=== PATIENT | male | born 1960 | race Caucasian/White ===

== ENCOUNTER 2019-05-13 16:43 | Emergency (ER) | payer SELFPAY ==
--- NOTE | 2019-05-13 19:44 | Emergency Department Report ---
Blank Doc - Documentation Documentation: 58-year-old male that presents with right 5th finger pain, discoloration, and pulsating pain. This initial assessment/diagnostic orders/clinical plan/treatment(s) is/are subject to change based on patient's health status, clinical progression and re- assessment by fellow clinical providers in the ED. Further treatment and workup at subsequent clinical providers discretion. Patient/guardians urged not to elope from the ED as their condition may be serious if not clinically assessed and managed. Initial orders include: 1- Patient sent to MAIN ED for further evaluation and treatment 2- xrays 3- labs
[2019-05-13 19:57] LABS: Basophils # (Auto) 0.1 K/mm3 (0.0-0.1); Basophils % (Auto) 1.1 % (0.0-1.8); Eosinophils # (Auto) 0.3 K/mm3 (0.0-0.4); Eosinophils % (Auto) 4.6 % (0.0-4.3); Hematocrit 39.6 % (35.5-45.6); Hemoglobin 13.5 gm/dl (11.8-15.2); Lymphocytes # (Auto) 1.6 K/mm3 (1.2-5.4); Lymphocytes % (Auto) 28.9 % (13.4-35.0); Mean Corpuscular HGB Conc 34 % (32-34); Mean Corpuscular Volume 86 fl (84-94); Monocytes # (Auto) 0.6 K/mm3 (0.0-0.8); Monocytes % (Auto) 10.2 % (0.0-7.3); Platelet Count 176 K/mm3 (140-440); Red Blood Count 4.63 M/mm3 (3.65-5.03)
--- NOTE | 2019-05-13 20:11 | XRay Report ---
RIGHT HAND 3 VIEWS INDICATION / CLINICAL INFORMATION: MAIN: pain and swelling to hand; woke to hand swollen; Pt. c/o pain to fingertips and ears. Noted di scoloration to first finger and ring finger. COMPARISON: None available. FINDINGS: BONES / JOINT(S): No acute fracture or subluxation. No significant arthritis. SOFT TISSUES: Vascular calcification. ADDITIONAL FINDINGS: None. Signer Name: Adi Agosto MD Signed: 05/13/2019 8:07 PM Workstation Name: [id number]
[2019-05-13 20:31] LABS: BUN/Creatinine Ratio 29; Blood Urea Nitrogen 20 mg/dL (9-20); Calcium 9.3 mg/dL (8.4-10.2); Hemolysis Index 14
[2019-05-13] MEDS ORDERED: predniSONE 20 MG TAB PO ONE (22:33)
[2019-05-13] MEDS ORDERED: IBUPROFEN 600 MG TAB PO ONE (22:33)
--- NOTE | 2019-05-13 22:38 | Emergency Department Report ---
ED General Adult HPI - General Chief complaint: Extremity Problem,Nontraumatic Stated complaint: RIGHT HAND PAIN Time Seen by Provider: 05/13/19 19:33 Source: patient Mode of arrival: Ambulatory Limitations: No Limitations - History of Present Illness Initial comments: Patient is a 58-year-old male with a history of hypertension, coronary artery disease, [id number] diabetes and chronic osteoarthritis who presents to the ED with complaint of acute onset persistent severe nontraumatic right hand and right fourth and fifth finger pain and swelling for the last 2 weeks. Patient states that the pain is especially worse in the distal right fourth and fifth fingers. Patient states that the pain radiates proximally to the lateral right hand to the right wrist. Patient denies fall, traumatic injury, numbness or tingling or weakness of right hand or right fourth and fifth fingers, fever, chills, heavy lifting, nausea and vomiting or neck pain. MD Complaint: right 4th and 5th finger pains, swelling -: Sudden, week(s) (2) Location: right, upper extremity (right 4th and 5th fingers) Radiation: extremity (lateral right hand), proximal, distal Severity scale (0 -10): 7 Quality: aching, sharp, constant Consistency: constant Improves with: none Worsens with: movement Associated Symptoms: denies other symptoms. denies: confusion, chest pain, cough, diaphoresis, fever/chills, headaches, loss of appetite, malaise, nausea/vomiting, rash, seizure, shortness of breath, syncope, weakness, other Treatments Prior to Arrival: none - Related Data Previous Rx's Medication Instructions Recorded Last Taken Type Aspirin EC [Halfprin EC] 81 mg PO QDAY #30 tablet 02/14/18 Unknown Rx AtorvaSTATin [Lipitor] 40 mg PO QHS #30 tablet 02/14/18 Unknown Rx ISOSORBIDE MONOnitrate [Imdur ER] 30 mg PO QDAY #30 tablet 02/14/18 Unknown Rx Insulin NPH/Regular [NovoLIN 70/30] 10 unit SUB-Q BIDDIAB 30 Days 02/14/18 Unknown Rx units Metoprolol [Lopressor TAB] 25 mg PO Q12H #60 tablet 02/14/18 Unknown Rx Nitroglycerin [Nitrostat] 0.4 mg SL Q5M PRN #30 tablet 02/14/18 Unknown Rx Ticagrelor [Brilinta] 90 mg PO BID #60 tablet 02/14/18 Unknown Rx lisinopriL [Zestril TAB] 5 mg PO QDAY #30 tablet 02/14/18 Unknown Rx Naproxen 500 mg PO Q12H PRN #30 tablet 05/13/19 Unknown Rx predniSONE [Deltasone] 40 mg PO QDAY #12 tab 05/13/19 Unknown Rx traMADoL [Ultram] 50 mg PO Q6HR PRN #12 tablet 05/13/19 Unknown Rx Allergies Allergy/AdvReac Type Severity Reaction Status Date / Time No Known Allergies Allergy Verified 07/26/17 12:59 ED Review of Systems ROS: Stated complaint: RIGHT HAND PAIN Other details as noted in HPI Constitutional: denies: chills, fever Eyes: denies: eye pain, eye discharge, vision change ENT: denies: ear pain, throat pain Respiratory: denies: cough, shortness of breath, wheezing Cardiovascular: denies: chest pain, palpitations Endocrine: no symptoms reported Gastrointestinal: denies: abdominal pain, nausea, diarrhea Genitourinary: denies: urgency, dysuria Musculoskeletal: joint swelling (distal right 4th and 5th fingers), arthralgia (right hand; right 4th and 5th fingers). 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 (nursing entry, unlikely to be accurate)) Hx Diabetes: Yes Additional medical history: CAD - Surgical History Past Surgical History?: Yes Hx Coronary Stent: Yes Additional Surgical History: CABG 2017 - Social History Smoking Status: Never Smoker Substance Use Type: Alcohol - Medications Home Medications: Home Medications Medication Instructions Recorded Confirmed Last Taken Type Aspirin EC [Halfprin EC] 81 mg PO QDAY #30 tablet 02/14/18 Unknown Rx AtorvaSTATin [Lipitor] 40 mg PO QHS #30 tablet 02/14/18 Unknown Rx ISOSORBIDE MONOnitrate [Imdur ER] 30 mg PO QDAY #30 tablet 02/14/18 Unknown Rx Insulin NPH/Regular [NovoLIN 70/30] 10 unit SUB-Q BIDDIAB 30 Days 02/14/18 Unknown Rx units Metoprolol [Lopressor TAB] 25 mg PO Q12H #60 tablet 02/14/18 Unknown Rx Nitroglycerin [Nitrostat] 0.4 mg SL Q5M PRN #30 tablet 02/14/18 Unknown Rx Ticagrelor [Brilinta] 90 mg PO BID #60 tablet 02/14/18 Unknown Rx lisinopriL [Zestril TAB] 5 mg PO QDAY #30 tablet 02/14/18 Unknown Rx Naproxen 500 mg PO Q12H PRN #30 tablet 05/13/19 Unknown Rx predniSONE [Deltasone] 40 mg PO QDAY #12 tab 05/13/19 Unknown Rx traMADoL [Ultram] 50 mg PO Q6HR PRN #12 tablet 05/13/19 Unknown Rx ED Physical Exam - General Limitations: No Limitations General appearance: alert, in no apparent distress - Head Head exam: Present: atraumatic, normocephalic, normal inspection - Eye Eye exam: Present: normal appearance, PERRL, EOMI Pupils: Present: normal accommodation - ENT ENT exam: Present: normal exam, normal orophraynx, mucous membranes moist, TM's normal bilaterally, normal external ear exam - Neck Neck exam: Present: normal inspection, full ROM - Respiratory Respiratory exam: Present: normal lung sounds bilaterally. Absent: respiratory distress, wheezes, rales, rhonchi, chest wall tenderness, accessory muscle use, decreased breath sounds, prolonged expiratory - Cardiovascular Cardiovascular Exam: Present: regular rate, normal rhythm, normal heart sounds. Absent: systolic murmur, diastolic murmur, rubs, gallop - GI/Abdominal GI/Abdominal exam: Present: soft, normal bowel sounds. Absent: tenderness, guarding, rebound, hyperactive bowel sounds, hypoactive bowel sounds, organomegaly - Extremities Exam Extremities exam: Present: normal inspection, full ROM, tenderness (palpable distal right 4th and 5th finger tenderness with mild swelling; no discoloration or delayed capillary refills), normal capillary refill, joint swelling (distal right 4th and 5th fingers) - Back Exam Back exam: Present: normal inspection, full ROM. Absent: tenderness, CVA tenderness (R), muscle spasm, paraspinal tenderness, vertebral tenderness - Neurological Exam Neurological exam: Present: alert, oriented X3, CN II-XII intact, normal gait, reflexes normal - Psychiatric Psychiatric exam: Present: normal affect, normal mood - Skin Skin exam: Present: warm, dry, intact, normal color. Absent: rash ED Course Vital Signs 05/13/19 05/13/19 19:46 22:11 Temperature 98.5 F Pulse Rate 91 H Respiratory 18 17 Rate Blood Pressure 135/94 [Right] O2 Sat by Pulse 100 Oximetry ED Medical Decision Making - Lab Data Result diagrams: 05/13/19 19:48 05/13/19 19:48 - Medical Decision Making This is a 58-year-old male who presented to the ED with nontraumatic right hand and right fourth and fifth finger pain and mild swelling for 2 weeks. In the ED, patient is alert and oriented x3 and is not in any distress. Patient was treated for pain in the ED and discharged home on medications for pain. Patient symptoms are likely due to acute tendinitis, muscle strain or osteoarthritis. Patient was advised to follow-up with his primary care physician in 5 to 7 days for evaluation or return to the ED immediately if symptoms get worse. - Differential Diagnosis Tendonitis; muscle strain; osteoarthritis Critical care attestation.: If time is entered above; I have spent that time in minutes in the direct care of this critically ill patient, excluding procedure time. ED Disposition Clinical Impression: Tendonitis of right hand, Muscle strain of finger of right hand, Primary osteoarthritis of right hand Disposition: DC-01 TO HOME OR SELFCARE Is pt being admited?: No Does the pt Need Aspirin: No Condition: Stable Instructions: Muscle Strain (ED), Tendinitis (ED), Osteoarthritis (ED) Additional Instructions: Celena sntomas se deben a la inflamacin de los tendones y ligamentos de la mano y los dedos (tendinitis) y tambin a la enfermedad degenerativa de las articulaciones (osteoartritis). Por lo tanto, tome medicamentos con alimentos, dean muchos lquidos y carmen un seguimiento con swartz mdico de atencin primaria en 5 a 7 bourne para la reevaluacin. Regrese al servicio de urgencias de inmediato si los sntomas empeoran. Prescriptions: predniSONE [Deltasone] 40 mg PO QDAY #12 tab Naproxen 500 mg PO Q12H PRN #30 tablet PRN Reason: Pain , Severe (7-10) traMADoL [Ultram] 50 mg PO Q6HR PRN #12 tablet PRN Reason: Pain Referrals: VINAY GUEVARA MD [Staff Physician] - 7-10 days Time of Disposition: 22:48 Print Language: IRISH
[2019-05-13 23:14] VITALS: BP 137/85
== END 2019-05-13 23:14 | disposition home or self-care (01) ==
LOC: ED 16:43
DX: S56.115A Strain of flexor muscle, fascia and tendon of right ring finger at forearm level, initial encounter (principal); S56.113A Strain of flexor muscle, fascia and tendon of right middle finger at forearm level, initial encounter; M77.9 Enthesopathy, unspecified; M19.041 Primary osteoarthritis, right hand; I10 Essential (primary) hypertension; I25.2 Old myocardial infarction; E11.9 Type 2 diabetes mellitus without complications; Z95.5 Presence of coronary angioplasty implant and graft; Z98.890 Other specified postprocedural states; Z79.899 Other long term (current) drug therapy; X58.XXXA Exposure to other specified factors, initial encounter; Y93.89 Activity, other specified; Y92.89 Other specified places as the place of occurrence of the external cause; Y99.8 Other external cause status
CPT/HCPCS: 36415; 73130; 80048; 85025; 99283; J7512

== ENCOUNTER 2019-06-13 21:08 | Inpatient (IN) | payer OTHER ==
[2019-06-13 21:56] LABS: Basophils % (Auto) 0.4 % (0.0-1.8); Eosinophils % (Auto) 0.2 % (0.0-4.3); Hematocrit 29.7 % (35.5-45.6); Lymphocytes % (Auto) 20.7 % (13.4-35.0); Mean Corpuscular HGB Conc 34 % (32-34); Mean Corpuscular Volume 87 fl (84-94); Monocytes # (Auto) 0.7 K/mm3 (0.0-0.8); Monocytes % (Auto) 6.9 % (0.0-7.3); Platelet Count 206 K/mm3 (140-440); Red Blood Count 3.42 M/mm3 (3.65-5.03); Red Cell Distribution Width 13.1 % (13.2-15.2)
[2019-06-13 22:02] LABS: Alanine Aminotransferase 17 units/L (7-56); Albumin 4.3 g/dL (3.9-5); BUN/Creatinine Ratio 50; Blood Urea Nitrogen 55 mg/dL (9-20); Hemolysis Index 6
[2019-06-13 23:43] LABS: Bilirubin,Urine NEG (Negative); Blood,Urine NEG (Negative); Color,Urine Colorless (Yellow); Mucus,Urine FEW /HPF; Protein,Urine <15 mg/dL mg/dL (Negative); Urobilinogen,Urine < 2.0 mg/dL (<2.0); WBC,Urine < 1.0 /HPF (0.0-6.0)
[2019-06-13] MEDS ORDERED: SODIUM CHLORIDE 0.9% 1000 ML 1,000 ML IV ONE (23:49)
--- NOTE | 2019-06-13 23:59 | Emergency Department Report ---
ED GI Bleed HPI - General Chief complaint: Hyperglycemia Stated complaint: HBS Time Seen by Provider: 06/13/19 23:22 Source: patient Mode of arrival: Ambulatory Limitations: Language Barrier - History of Present Illness Initial comments: 58-year-old male with history of hypertension, diabetes, CAD, colon cancer presents to ED with bloody stool x3 days. Patient reports history of colon cancer several years ago which he states was treated with "laser." Patient denies ever having had chemotherapy or radiation. Patient reports this therapy cured his cancer. 2 years ago patient was admitted to this hospital and found to have questionable metastatic disease to the lung and liver. Patient denies following up with any physicians on an outpatient patient basis since that admission. Patient reports over the last 3 days having dark black stool, and epigastric pain. States the pain has been intermittent. Patient reports nausea, no vomiting or fever. Patient also reports today his glucose was elevated. PCP: Twila VUONG complaint: melena -: days(s) (3) Location: epigastric Radiation: none Quality: cramping Consistency: intermittent Improves with: none Worsens with: none Context: history of GI bleed, other (history of colon CA) Associated Symptoms: abdominal pain, nausea - Related Data Home Medications Medication Instructions Recorded Confirmed Last Taken Insulin NPH/Regular [NovoLIN 70/30] 0 unit SUB-Q BIDDIAB 06/14/19 06/14/19 Unknown Aspirin 81 mg PO QDAY 06/15/19 06/15/19 Unknown Clopidogrel 75 mg PO QDAY 06/15/19 06/15/19 Unknown Previous Rx's Medication Instructions Recorded Last Taken Type Insulin NPH/Regular [Novolin 70/30] 15 unit SQ BIDDIAB #1 vial 06/16/19 Unknown Rx Isosorbide Mononitrate 30 mg PO QDAY #30 06/16/19 Unknown Rx Metoprolol 50 mg PO BID #60 06/16/19 Unknown Rx Pantoprazole [Protonix TAB] 40 mg PO QDAY #30 tablet 06/16/19 Unknown Rx cephALEXin [Keflex] 500 mg PO Q6H 7 Days #28 capsule 06/16/19 Unknown Rx traMADoL [Ultram 50 MG tab] 50 mg PO Q6HR PRN #12 tablet 06/16/19 Unknown Rx Allergies Allergy/AdvReac Type Severity Reaction Status Date / Time No Known Allergies Allergy Verified 07/26/17 12:59 ED Review of Systems ROS: Stated complaint: HBS Other details as noted in HPI Comment: All other systems reviewed and negative Constitutional: denies: chills, fever Gastrointestinal: abdominal pain, nausea, melena. denies: vomiting ED Past Medical Hx - Past Medical History Previous Medical History?: Yes Hx Hypertension: Yes Hx Heart Attack/AMI: Yes (x4, most recent 09/2016 (nursing entry, unlikely to be accurate)) Hx Diabetes: Yes Additional medical history: CAD - Surgical History Hx Coronary Stent: Yes Additional Surgical History: CABG 2017 - Social History Smoking Status: Former Smoker Substance Use Type: Alcohol - Medications Home Medications: Home Medications Medication Instructions Recorded Confirmed Last Taken Type Insulin NPH/Regular [NovoLIN 70/30] 0 unit SUB-Q BIDDIAB 06/14/19 06/14/19 Unknown History Aspirin 81 mg PO QDAY 06/15/19 06/15/19 Unknown History Clopidogrel 75 mg PO QDAY 06/15/19 06/15/19 Unknown History Insulin NPH/Regular [Novolin 70/30] 15 unit SQ BIDDIAB #1 vial 06/16/19 Unknown Rx Isosorbide Mononitrate 30 mg PO QDAY #30 06/16/19 Unknown Rx Metoprolol 50 mg PO BID #60 06/16/19 Unknown Rx Pantoprazole [Protonix TAB] 40 mg PO QDAY #30 tablet 06/16/19 Unknown Rx cephALEXin [Keflex] 500 mg PO Q6H 7 Days #28 capsule 06/16/19 Unknown Rx traMADoL [Ultram 50 MG tab] 50 mg PO Q6HR PRN #12 tablet 06/16/19 Unknown Rx ED Physical Exam - General Limitations: Language Barrier General appearance: alert, in no apparent distress - Head Head exam: Present: atraumatic, normocephalic - Eye Eye exam: Present: normal appearance, EOMI - ENT ENT exam: Present: mucous membranes moist - Neck Neck exam: Present: normal inspection - Respiratory Respiratory exam: Present: normal lung sounds bilaterally. Absent: respiratory distress - Cardiovascular Cardiovascular Exam: Present: normal rhythm, tachycardia - GI/Abdominal GI/Abdominal exam: Present: soft. Absent: distended, tenderness - Rectal Rectal exam: Present: heme (+) stool - Extremities Exam Extremities exam: Present: normal inspection - Neurological Exam Neurological exam: Present: alert, oriented X3 - Psychiatric Psychiatric exam: Present: normal affect, normal mood - Skin Skin exam: Present: warm, dry, intact, normal color ED Course Vital Signs 06/13/19 06/13/19 06/13/19 21:13 23:48 23:50 Temperature 98.1 F 98.4 F Pulse Rate 141 H 120 H Respiratory 18 19 19 Rate Blood Pressure 149/91 Blood Pressure 141/83 [Right] O2 Sat by Pulse 98 97 97 Oximetry 06/14/19 06/14/19 06/14/19 00:57 02:13 02:45 Temperature Pulse Rate 115 H 116 H 113 H Respiratory 19 17 18 Rate Blood Pressure Blood Pressure 154/85 139/88 139/80 [Right] O2 Sat by Pulse 98 98 97 Oximetry 06/14/19 06/14/19 06/14/19 04:34 05:24 05:55 Temperature 97.8 F Pulse Rate 110 H 110 H 109 H Respiratory 15 17 18 Rate Blood Pressure 132/79 Blood Pressure 121/67 102/62 [Right] O2 Sat by Pulse 97 96 98 Oximetry ED Medical Decision Making - Lab Data Result diagrams: 06/16/19 12:49 06/16/19 05:18 - Medical Decision Making - stool is heme positive, appears slightly melanotic - Hb currently 10 which is lower than when he was seen 1 month ago; 13.5 on 05/13/19 - BUN and Cr currently elevated at 55 and 1.1 compared to last month which was 20/0.7 - pt tachycardic, 140s initially, but improved w/ IV fluid bolus - protonix bolus and drip initiated - pt admitted to hospitalist - Differential Diagnosis hyperglycemia, DKA, GI bleed Critical care attestation.: If time is entered above; I have spent that time in minutes in the direct care of this critically ill patient, excluding procedure time. ED Disposition Clinical Impression: Hyperglycemia, GI bleed Disposition: OP ADMIT IP TO THIS HOSP Is pt being admited?: Yes Condition: Fair Time of Disposition: 01:54
[2019-06-14] MEDS ORDERED: PANTOPRAZOLE 40 MG INJ IV ONE (00:37)
[2019-06-14] MEDS ORDERED: PANTOPRAZOLE 80 MG in SODIUM CHLORIDE 0.9% 100 ML IV SCH (01:00)
--- NOTE | 2019-06-14 01:44 | Cat Scan Report ---
CT abdomen pelvis w con INDICATION / CLINICAL INFORMATION: MAIN: GENERALIZED abd pain, hx colon CA w/ poss mets. 100 ML OMNIPAQUE 300. TECHNIQUE: Axial CT imaging of abdomen and pelvis was obtained with IV contrast. Coronal and sagittal reformatte d imaging obtained and reviewed. All CT scans at this location are performed using CT dose reduction for ALARA by means of automated exposure control. COMPARISON: Prior CT abdomen/pelvis, 02/09/2018 FINDINGS: CT abdomen with contrast demonstrates mild hepatic steatosis. There are multiple tiny hypodensities t hroughout the liver which are essentially unchanged from the prior CT from 02/09/2018. It is unclear i f these are metastases or cysts. The densities are too small to characterize. However, the lack of an y significant interval change from the prior CT would make me favor cysts. Spleen, pancreas, right ki dney, and adrenal glands are all normal in appearance. There is a simple cyst arising from the left m id kidney measuring 4.5 cm. This is unchanged from prior exam. The left kidney is otherwise normal. G allbladder is mostly collapsed. No biliary dilatation. There is mild periaortic adenopathy not apprec iably changed from the prior study. CT pelvis with contrast demonstrates normal appearance of the appendix. No pelvic mass, free fluid, o r focal inflammatory change noted. Bilateral iliac chain adenopathy is present but multiple lymph nod es are decreased in size and prominence from the prior study. No new adenopathy noted. The small bowel is diffusely mildly prominent but without air-fluid levels or bowel wall thickening. This could represent mild enteritis if there is clinical concern for enteritis. Scattered small pulmonary nodules are seen throughout both lung bases with the nodules appear unchang ed to slightly smaller in size compared to the prior study. I do not see any new nodules. No pleural effusion. There is bilateral hilar and subcarinal adenopathy, also unchanged from prior exam. No significant osseous abnormality. IMPRESSION: 1. Questionable mild enteritis. Please correlate with clinical symptoms and presentation. 2. Retroperitoneal and pelvic adenopathy are present and appear decreased in size/less prominent than on 2018 CT scan, in this patient with known colon cancer. 3. Several pulmonary nodules are noted, which are less prominent than on prior CT scan. Stable visual ized hilar and subcarinal adenopathy. Signer Name: Vinita Hernandez MD Signed: 06/14/2019 1:39 AM Workstation Name: [id number]
[2019-06-14] MEDS ORDERED: ONDANSETRON 4 MG/2 ML INJ IV PRN (05:01)
[2019-06-14] MEDS ORDERED: DEXTROSE 50% IN WATER (25GM) 50 ML SYRINGE IV PRN (05:03)
[2019-06-14] MEDS ORDERED: hydrALAZINE 20 MG/1 ML INJ IV PRN (05:09)
--- NOTE | 2019-06-14 05:09 | History and Physical Report ---
History of Present Illness Date of admission: 06/14/19 04:47 History of present illness: 58-year-old man with a history of hypertension, diabetes, colon cancer, hyperlipidemia, coronary artery disease comes emergency room with complaints of melena x3 days. Also complaining of abdominal pain located on the right and l eft sides circling down to 3 lower abdomen which he described as a dull pain, constant, intensity 5/10, no radiation, cannot identify exacerbating factors. Patient will be admitted to the hospital for GI bleed Review Of Systems: Constitutional: no weight loss, fever, chills Ears, eyes, nose, mouth and throat: no nasal congestion, no nasal discharge, no sinus pressure, blurry vision, diplopia Neck: No neck pain or rigidity. Cardiovascular: No palpitations, chest pain Respiratory: No shortness of breath, cough Gastrointestinal: +Melena Genitourinary : no dysuria, frequency Musculoskeletal: no muscle ache , joint pain Integumentary: no rash, no pruritis Neurological: no parathesias, focal weakness Endocrine: no cold or heat intolerance, no polyuria or polydipsia Hematologic/Lymphatic: no easy bruising, no easy bleeding, no gland swelling Allergic/Immunologic: no urticaria, no angioedema. PAST MEDICAL HISTORY: hypertension, diabetes, colon cancer, hyperlipidemia, coronary artery disease PAST SURGICAL HISTORY: Abdominal surgery SOCIAL HISTORY: Denies alcohol, tobacco, drugs FAMILY HISTORY: Hypertension Medications and Allergies Allergies Allergy/AdvReac Type Severity Reaction Status Date / Time No Known Allergies Allergy Verified 07/26/17 12:59 Home Medications Medication Instructions Recorded Confirmed Last Taken Type Insulin NPH/Regular [NovoLIN 70/30] 0 unit SUB-Q BIDDIAB 06/14/19 06/14/19 Unknown History Active Meds: Active Medications Acetaminophen (Tylenol) 650 mg PO Q4H PRN PRN Reason: Pain MILD(1-3)/Fever >100.5/IHCKMAN Dextrose (D50w (25gm) Syringe) 50 ml IV Q30MIN PRN; Protocol PRN Reason: Hypoglycemia Pantoprazole Sodium 80 mg/ (Sodium Chloride) 100 mls @ 10 mls/hr IV DIRECT GENNA Last Admin: 06/14/19 01:20 Dose: 8 mg/hr, 10 mls/hr Documented by: Sodium Chloride (Nacl 0.45% 1000 Ml) 1,000 mls @ 150 mls/hr IV DIRECT GENNA Insulin Human Lispro (Humalog) 0 unit SUB-Q Q6HR GENNA; Protocol Morphine Sulfate (Morphine) 2 mg IV Q4H PRN PRN Reason: Pain, Moderate (4-6) Ondansetron HCl (Zofran) 4 mg IV Q8H PRN PRN Reason: Nausea And Vomiting Sodium Chloride (Sodium Chloride Flush Syringe 10 Ml) 10 ml IV BID GENNA Sodium Chloride (Sodium Chloride Flush Syringe 10 Ml) 10 ml IV PRN PRN PRN Reason: LINE FLUSH Exam - Physical Exam Narrative exam: Gen. appearance: Patient lying in bed, no apparent distress HEENT: Normocephalic, atraumatic, pupils equally round and reactive to light, extraocular movement intact, and no sclericterus,. No JVD or thyromegaly or nodule,neck supple, no carotid bruit ,mucous membranes moist, no exudate or erythema Heart: S1, S2, regular rate and rhythm Lungs: Clear bilaterally, breathing comfortable Abdomen: Positive bowel sounds, nontender, nondistended, no organomegaly Extremity: no edema, cyanosis, clubbing Skin: No rash, nodules, warm, dry Neuro: Cranial nerves II to XII intact, speech is fluent, moves extremities, se nsory intact Rectal: Heme positive - Constitutional Vitals: Temp Pulse Resp BP Pulse Ox 98.4 F 110 H 15 121/67 97 06/13/19 23:48 06/14/19 04:34 06/14/19 04:34 06/14/19 04:34 06/14/19 04:34 Results - Labs CBC & Chem 7: 06/13/19 21:30 06/13/19 21:30 Labs: Abnormal lab results 06/13/19 06/13/19 06/13/19 Range/Units 21:24 21:30 21:30 RBC 3.42 L (3.65-5.03) M/mm3 Hgb 10.0 L (11.8-15.2) gm/dl Hct 29.7 L (35.5-45.6) % RDW 13.1 L (13.2-15.2) % Seg Neutrophils % 71.8 H (40.0-70.0) % Sodium 129 L (137-145) mmol/L Chloride 94.8 L (98-107) mmol/L Carbon Dioxide 17 L (22-30) mmol/L BUN 55 H (9-20) mg/dL Glucose 429 H (75-100) mg/dL POC Glucose 441 H (70-105) 06/14/19 Range/Units 00:13 RBC (3.65-5.03) M/mm3 Hgb (11.8-15.2) gm/dl Hct (35.5-45.6) % RDW (13.2-15.2) % Seg Neutrophils % (40.0-70.0) % Sodium (137-145) mmol/L Chloride (98-107) mmol/L Carbon Dioxide (22-30) mmol/L BUN (9-20) mg/dL Glucose (75-100) mg/dL POC Glucose 375 H (70-105) - Imaging and Cardiology CT scan - abdomen: report reviewed CT scan - pelvis: report reviewed Assessment and Plan Assessment GI bleed /melena Continue Protonix drip, follow hemoglobin Consult GI, start IV fluids Diabetes uncontrolled Start insulin, IV fluids Check fingersticks Hypertension, stable IV hydralazine as needed for blood pressure control Alcohol abuse Start CIWA protocol with IV Ativan History of colon cancer DVT prophylaxis
[2019-06-14] MEDS ORDERED: INSULIN REGULAR, HUMAN 100 UNITS/1 ML ONE (05:15)
[2019-06-14] MEDS ORDERED: SODIUM CHLORIDE 0.45% 1000 ML 1,000 ML IV ONE (05:18)
[2019-06-14] MEDS: SODIUM CHLORIDE 0.45% 1000 ML 1,000 ML IV SCH ×2 (05:19→18:42)
[2019-06-14] MEDS: INSULIN LISPRO 100 UNIT/ML SUB-Q SCH ×3 (05:30→19:18)
[2019-06-14] MEDS ORDERED: SODIUM CHLORIDE 0.45% 1000 ML 1,000 ML IV SCH (06:00)
[2019-06-14] MEDS ORDERED: LORazepam 2 MG/ML VIAL IV PRN ×2 (06:04)
--- NOTE | 2019-06-14 07:59 | Progress Note ---
Assessment and Plan Assessment and plan: Patient is a 58-year-old Lithuanian speaking man (Community Organization Director service used) with a history of hypertension, diabetes mellitus type 2, colon cancer, hyperlipidemia and coronary artery disease who presents to [facility] ED with melena x3 days and abdominal pains. Patient will be admitted to the hospital for GI bleed. Patient reports history of colon cancer several years ago which he states was treated with "laser." Patient denies ever having had chemotherapy or radiation. Patient reports this therapy cured his cancer. 2 years ago patient was admitted to this hospital and found to have questionable metastatic disease to the lung and liver. Patient denies following up with any physicians on an outpatient patient basis since that admission. In ED he was found to have heme positive melanotic stools, drop in hemoglobin to 10 which is lower than when he was seen 1 month ago @ 13.5 on 05/13/19. Also, he renal function has declined slightly, BUN and Cr currently elevated at 55 and 1.1 as compared to last month which was 20/0.7. He was also tachycardic, HR in the 140s initially, but improved w/ IV fluid bolus. PCP: Twila. * CT abd/pelvis with contrast IMPRESSION: 1. Questionable mild enteritis. Please correlate with clinical symptoms and presentation. 2. Retroperitoneal and pelvic adenopathy are present and appear decreased in size/less prominent than on 2018 CT scan, in this patient with known colon cancer. 3. Several pulmonary nodules are noted, which are less prominent than on prior CT scan. Stable visualized hilar and subcarinal adenopathy. Acute GI bleed /melena: Continue Protonix drip, follow hemoglobin, Consult GI, start IV fluids Acute on chronic GI blood loss anemia: serial H/H Hyponatremia, hypo-osm: treat with volume, monitor BMP benny Diabetes mellitus uncontrolled hyperglycemia: treat with SSI and modified diet WALT, vasomotor nephropathy suspected, as BUN and Cr currently elevated at 55 and 1.1 compared to last month which was 20/0.7: treat with IVFs Hypertension, stable: IV hydralazine as needed for blood pressure control Alcohol abuse: Start CIWA protocol with IV Ativan History of colon cancer DVT prophylaxis: SCD only due to anemia History Interval history: Patient was seen and examined. Follow-up on current diagnosis of GI bleed. Overnight uneventful as no events directly reported to me. Patient denies any chest pain, shortness breath, nausea/vomiting or severe headaches. Imaging, nursing note, chart, labs and old chart reviewed. Discussed with patient. Hospitalist Physical - Physical exam Narrative exam: Gen: WDWN, NAD, Awake, Alert, Orientated HEENT: NCAT, EOMI, PERRL, OP Clear Neck: supple, no adenopathy, no thyromegaly, no JVD CVS/Heart: RRR, normal S1S2, pulses present bilaterally Chest/Lungs: CTA B, Symmetrical chest expansion, good air entry bilaterally GI/Abdomen: soft, NTND, good bowel sounds, no guarding or rebound /Bladder: no suprapubic tenderness, no CVA or paraspinal tenderness Extermity/Skin: no c/c/e, no obvious rash MSK: FROM x 4 Neuro: CN 2-12 grossly intact, no new focal deficits Psych: calm - Constitutional Vitals: Temp Pulse Resp BP Pulse Ox 97.8 F 109 H 18 132/79 98 06/14/19 05:55 06/14/19 07:01 06/14/19 05:55 06/14/19 05:55 06/14/19 05:55 BAIRON score - Bairon Score Age > 65: (0) No Aspirin use within the Past 7 Days: (0) No 3 or more CAD Risk Factors: (1) Yes 2 or more Angina events in past 24 hrs: (0) No Known CAD with more than 50% Stenosis: (0) No Elevated Cardiac Markers: (0) No ST Deviation Greater than 0.5mm: (0) No BAIRON Score: 1 Results - Labs CBC & Chem 7: 06/14/19 08:07 06/14/19 08:07 Labs: Laboratory Last Values WBC 9.9 K/mm3 (4.5-11.0) 06/13/19 21:30 RBC 3.42 M/mm3 (3.65-5.03) L 06/13/19 21:30 Hgb 10.0 gm/dl (11.8-15.2) L 06/13/19 21:30 Hct 29.7 % (35.5-45.6) L 06/13/19 21:30 MCV 87 fl (84-94) 06/13/19 21:30 MCH 29 pg (28-32) 06/13/19 21:30 MCHC 34 % (32-34) 06/13/19 21:30 RDW 13.1 % (13.2-15.2) L 06/13/19 21:30 Plt Count 206 K/mm3 (140-440) 06/13/19 21:30 Lymph % (Auto) 20.7 % (13.4-35.0) 06/13/19 21: Saline % (Auto) 6.9 % (0.0-7.3) 06/13/19 21:30 Eos % (Auto) 0.2 % (0.0-4.3) 06/13/19 21: Baso % (Auto) 0.4 % (0.0-1.8) 06/13/19: Lymph # 2.0 K/mm3 (1.2-5.4) 06/13/19 21: Saline # 0.7 K/mm3 (0.0-0.8) 06/13/19 21: Eos # 0.0 K/mm3 (0.0-0.4) 06/13/19 21: Baso # 0.0 K/mm3 (0.0-0.1) 06/13/19 21: Seg Neutrophils % 71.8 % (40.0-70.0) H 06/13/19 21: Seg Neutrophils # 7.1 K/mm3 (1.8-7.7) 06/13/19 21:30 Sodium 129 mmol/L (137-145) L 06/13/19 21:30 Potassium 4.7 mmol/L (3.6-5.0) 06/13/19 21:30 Chloride 94.8 mmol/L (98-107) L 06/13/19 21:30 Carbon Dioxide 17 mmol/L (22-30) L 06/13/19 21:30 Anion Gap 22 mmol/L 06/13/19 21:30 BUN 55 mg/dL (9-20) H 06/13/19 21:30 Creatinine 1.1 mg/dL (0.8-1.5) 06/13/19 21:30 Estimated GFR > 60 ml/min 06/13/19 21:30 BUN/Creatinine Ratio 50 % 06/13/19 21:30 Glucose 429 mg/dL (75-100) H 06/13/19 21:30 POC Glucose 286 (70-105) H 06/14/19 05:21 Calcium 9.0 mg/dL (8.4-10.2) 06/13/19 21:30 Total Bilirubin 0.40 mg/dL (0.1-1.2) 06/13/19 21:30 AST 12 units/L (5-40) 06/13/19 21:30 ALT 17 units/L (7-56) 06/13/19 21:30 Alkaline Phosphatase 84 units/L (35-129) 06/13/19 21:30 Total Protein 7.0 g/dL (6.3-8.2) 06/13/19 21:30 Albumin 4.3 g/dL (3.9-5) 06/13/19 21: Albumin/Globulin Ratio 1.6 % 06/13/19 21:30 Urine Color Colorless (Yellow) 06/13/19 Unknown Urine Turbidity Clear (Clear) 06/13/19 Unknown Urine pH 5.0 (5.0-7.0) 06/13/19 Unknown Ur Specific [place] 1.025 (1.003-1.030) 06/13/19 Unknown Urine Protein <15 mg/dl mg/dL (Negative) 06/13/19 Unknown Urine Glucose (UA) >=500 mg/dL (Negative) 06/13/19 Unknown Urine Ketones 20 mg/dL (Negative) 06/13/19 Unknown Urine Blood Neg (Negative) 06/13/19 Unknown Urine Nitrite Neg (Negative) 06/13/19 Unknown Urine Bilirubin Neg (Negative) 06/13/19 Unknown Urine Urobilinogen < 2.0 mg/dL (<2.0) 06/13/19 Unknown Ur Leukocyte Esterase Neg (Negative) 06/13/19 Unknown Urine WBC (Auto) < 1.0 /HPF (0.0-6.0) 06/13/19 Unknown Urine RBC (Auto) 2.0 /HPF (0.0-6.0) 06/13/19 Unknown U Epithel Cells (Auto) < 1.0 /HPF (0-13.0) 06/13/19 Unknown Urine Mucus Few /HPF 06/13/19 Unknown Blood Type O POSITIVE 06/14/19 00:12 Antibody Screen Negative 06/14/19 00:12 Bragg/IV: Voiding Method Toilet IV Catheter Type [Left Hand] INT / Saline Lock Active Medications - Current Medications Current Medications: Generic Name Dose Route Start Last Admin Trade Name Freq PRN Reason Stop Dose Admin Acetaminophen 650 mg 06/14/19 05:01 Tylenol PO Q4H PRN Pain MILD(1-3)/Fever >100.5/HICKMAN Dextrose 50 ml 06/14/19 05:03 D50w (25gm) Syringe IV Q30MIN PRN Hypoglycemia Protocol Hydralazine HCl 5 mg 06/14/19 05:09 Apresoline IV Q6H PRN Hypertension Pantoprazole Sodium 80 mg/ 100 mls @ 10 mls/hr 06/14/19 01:00 06/14/19 01:20 Sodium Chloride IV 8 mg/hr DIRECT GENNA 10 mls/hr Administration 8 MG/HR Sodium Chloride 1,000 mls @ 150 mls/hr 06/14/19 05:12 06/14/19 05:19 Nacl 0.45% 1000 Ml IV 150 mls/hr DIRECT GENNA Administration Insulin Human Lispro 0 unit 06/14/19 06:00 06/14/19 05:30 Humalog SUB-Q 6 unit Q6HR GENNA Administration Protocol Lorazepam 2 mg 06/14/19 06:04 Ativan IV Q1HR PRN CIWA-Ar 8-15 Lorazepam 4 mg 06/14/19 06:04 Ativan IV Q1HR PRN CIWA-Ar 16-25 Morphine Sulfate 2 mg 06/14/19 05:01 Morphine IV Q4H PRN Pain, Moderate (4-6) Ondansetron HCl 4 mg 06/14/19 05:01 Zofran IV Q8H PRN Nausea And Vomiting Sodium Chloride 10 ml 06/14/19 10:00 Sodium Chloride Flush Syringe 10 Ml IV BID GENNA Sodium Chloride 10 ml 06/14/19 05:01 Sodium Chloride Flush Syringe 10 Ml IV PRN PRN LINE FLUSH
[2019-06-14 08:29] LABS: Basophils % (Auto) 0.5 % (0.0-1.8); Eosinophils # (Auto) 0.1 K/mm3 (0.0-0.4); Eosinophils % (Auto) 2.1 % (0.0-4.3); Hemoglobin 7.6 gm/dl (11.8-15.2); Mean Corpuscular HGB Conc 34 % (32-34); Mean Corpuscular Volume 86 fl (84-94); Monocytes # (Auto) 0.5 K/mm3 (0.0-0.8); Monocytes % (Auto) 9.7 % (0.0-7.3); Platelet Count 142 K/mm3 (140-440); Red Blood Count 2.55 M/mm3 (3.65-5.03); Red Cell Distribution Width 13.1 % (13.2-15.2)
[2019-06-14 08:48] LABS: BUN/Creatinine Ratio 59; Blood Urea Nitrogen 41 mg/dL (9-20); Calcium 8.1 mg/dL (8.4-10.2); Hemolysis Index 6
--- NOTE | 2019-06-14 09:21 | Gastroenterology Consultation ---
History of Present Illness - Reason for Consult Consult date: 06/14/19 GI bleed/melena Requesting physician: DOUGLAS GROVES - History of Present Illness Patient is a 58 y/o [place] Zealander speaking male with PMH of HTN, DM, HLD, MO/CAD (s/p stent), and hx of colon cancer? who was admitted for GI bleed with melena to which GI has been consulted. This morning patient was resting in bed w/o acute distress. Reports black stool with last episode yesterday. Admits to associated abdominal pain but denies fever, CP, SOB, wt loss, N/V, hematemesis, diarrhea, constipation, or hematochezia. Has been taking Naproxen recently at home for injured finger, along with daily ASA and Plavix. No hx of cirrhosis or PUD. No prior EGD. States his colon cancer was ~7 years ago but denies undergoing abdominal surgery, chemo, or radiation (no records/colonoscopy report available). Patient is previously known to our service from hospital consult in 2018 for CP which was 2/2 CAD with no endoscopy performed at that time. Past History Past Medical History: other (see HPI) Past Surgical History: Other (coronary stent) Social history: other (former smoker, alcohol) Medications and Allergies Allergies Allergy/AdvReac Type Severity Reaction Status Date / Time No Known Allergies Allergy Verified 07/26/17 12:59 Home Medications Medication Instructions Recorded Confirmed Last Taken Type Insulin NPH/Regular [NovoLIN 70/30] 0 unit SUB-Q BIDDIAB 06/14/19 06/14/19 Unknown History Active Meds: Active Medications Acetaminophen (Tylenol) 650 mg PO Q4H PRN PRN Reason: Pain MILD(1-3)/Fever >100.5/HICKMAN Dextrose (D50w (25gm) Syringe) 50 ml IV Q30MIN PRN; Protocol PRN Reason: Hypoglycemia Hydralazine HCl (Apresoline) 5 mg IV Q6H PRN PRN Reason: Hypertension Pantoprazole Sodium 80 mg/ (Sodium Chloride) 100 mls @ 10 mls/hr IV DIRECT GENNA Last Admin: 06/14/19 01:20 Dose: 8 mg/hr, 10 mls/hr Documented by: Sodium Chloride (Nacl 0.45% 1000 Ml) 1,000 mls @ 150 mls/hr IV DIRECT GENNA Last Admin: 06/14/19 05:19 Dose: 150 mls/hr Documented by: Insulin Human Lispro (Humalog) 0 unit SUB-Q Q6HR GENNA; Protocol Last Admin: 06/14/19 05:30 Dose: 6 unit Documented by: Lorazepam (Ativan) 2 mg IV Q1HR PRN PRN Reason: CIWA-Ar 8-15 Lorazepam (Ativan) 4 mg IV Q1HR PRN PRN Reason: CIWA-Ar 16-25 Morphine Sulfate (Morphine) 2 mg IV Q4H PRN PRN Reason: Pain, Moderate (4-6) Ondansetron HCl (Zofran) 4 mg IV Q8H PRN PRN Reason: Nausea And Vomiting Sodium Chloride (Sodium Chloride Flush Syringe 10 Ml) 10 ml IV BID GENNA Sodium Chloride (Sodium Chloride Flush Syringe 10 Ml) 10 ml IV PRN PRN PRN Reason: LINE FLUSH medications reviewed/updated as required Review of Systems - Review of Systems All systems: negative Gastrointestinal: abdominal pain, melena Exam - Constitutional Vital Signs: Temp Pulse Resp BP Pulse Ox 98.6 F 110 H 18 111/80 99 06/14/19 08:40 06/14/19 09:15 06/14/19 08:40 06/14/19 08:40 06/14/19 08:40 General appearance: no acute distress - EENT Eyes: PERRL, EOM intact ENT: hearing intact - Respiratory Respiratory effort: normal - Cardiovascular Rhythm: other (tachycardia) - Gastrointestinal General gastrointestinal: Present: soft, non-tender, non-distended, normal bowel sounds - Integumentary Integumentary: Present: warm - Neurologic Neurological: alert and oriented x3 - Labs CBC & Chem 7: 06/14/19 08:07 06/14/19 08:07 Lab Results: Laboratory Results - last 24 hr 06/13/19 06/13/19 06/13/19 21:24 21:30 21:30 WBC 9.9 RBC 3.42 L Hgb 10.0 L Hct 29.7 L MCV 87 MCH 29 MCHC 34 RDW 13.1 L Plt Count 206 Lymph % (Auto) 20.7 [place] % (Auto) 6.9 Eos % (Auto) 0.2 Baso % (Auto) 0.4 Lymph # 2.0 [place] # 0.7 Eos # 0.0 Baso # 0.0 Seg Neutrophils % 71.8 H Seg Neutrophils # 7.1 Sodium 129 L Potassium 4.7 Chloride 94.8 L Carbon Dioxide 17 L Anion Gap 22 BUN 55 H Creatinine 1.1 Estimated GFR > 60 BUN/Creatinine Ratio 50 Glucose 429 H POC Glucose 441 H Calcium 9.0 Total Bilirubin 0.40 AST 12 ALT 17 Alkaline Phosphatase 84 Total Protein 7.0 Albumin 4.3 Albumin/Globulin Ratio 1.6 Urine Color Urine Turbidity Urine pH Ur Specific [place] Urine Protein Urine Glucose (UA) Urine Ketones Urine Blood Urine Nitrite Urine Bilirubin Urine Urobilinogen Ur Leukocyte Esterase Urine WBC (Auto) Urine RBC (Auto) U Epithel Cells (Auto) Urine Mucus Blood Type Antibody Screen 06/13/19 06/14/19 06/14/19 Unknown 00:12 00:13 WBC RBC Hgb Hct MCV MCH MCHC RDW Plt Count Lymph % (Auto) [place] % (Auto) Eos % (Auto) Baso % (Auto) Lymph # [place] # Eos # Baso # Seg Neutrophils % Seg Neutrophils # Sodium Potassium Chloride Carbon Dioxide Anion Gap BUN Creatinine Estimated GFR BUN/Creatinine Ratio Glucose POC Glucose 375 H Calcium Total Bilirubin AST ALT Alkaline Phosphatase Total Protein Albumin Albumin/Globulin Ratio Urine Color Colorless Urine Turbidity Clear Urine pH 5.0 Ur Specific [place] 1.025 Urine Protein <15 mg/dl Urine Glucose (UA) >=500 Urine Ketones 20 Urine Blood Neg Urine Nitrite Neg Urine Bilirubin Neg Urine Urobilinogen < 2.0 Ur Leukocyte Esterase Neg Urine WBC (Auto) < 1.0 Urine RBC (Auto) 2.0 U Epithel Cells (Auto) < 1.0 Urine Mucus Few Blood Type O POSITIVE Antibody Screen Negative 06/14/19 06/14/19 06/14/19 05:21 08:07 08:07 WBC 5.6 RBC 2.55 L Hgb 7.6 L Hct 22.0 L D MCV 86 MCH 30 MCHC 34 RDW 13.1 L Plt Count 142 Lymph % (Auto) 36.0 H [place] % (Auto) 9.7 H Eos % (Auto) 2.1 Baso % (Auto) 0.5 Lymph # 2.0 [place] # 0.5 Eos # 0.1 Baso # 0.0 Seg Neutrophils % 51.7 Seg Neutrophils # 2.9 Sodium 138 D Potassium 3.7 D Chloride 106.0 Carbon Dioxide 20 L Anion Gap 16 BUN 41 H Creatinine 0.7 L Estimated GFR > 60 BUN/Creatinine Ratio 59 Glucose 165 H POC Glucose 286 H Calcium 8.1 L Total Bilirubin AST ALT Alkaline Phosphatase Total Protein Albumin Albumin/Globulin Ratio Urine Color Urine Turbidity Urine pH Ur Specific [place] Urine Protein Urine Glucose (UA) Urine Ketones Urine Blood Urine Nitrite Urine Bilirubin Urine Urobilinogen Ur Leukocyte Esterase Urine WBC (Auto) Urine RBC (Auto) U Epithel Cells (Auto) Urine Mucus Blood Type Antibody Screen Assessment and Plan 1.GI bleed/melena 2.H/o colon cancer? (no records available) -abd CT reviewed (mild enteritis, retroperitoneal/pelvic adenopathy, hypodense liver lesions and pulmonary nodules stable if not less prominent compared to prior imaging in 2018) -H/H 7.6/22.0-trend down -continue to monitor H/H and transfuse as needed -pt reports black stools yesterday-no hematemesis, hematochezia, or active signs of bleeding this am -currently HD stable -etiology-likely ulcer vs other -will schedule for EGD today for further evaluation -Keep NPO -continue protonix drip -hold blood thinning medications -supportive care -will follow 3.CAD (s/p stent; on plavix and ASA) 4.HTN 5.DM
[2019-06-14] MEDS ORDERED: SODIUM CHLORIDE 0.9% 1000 ML 1,000 ML IV SCH (13:15)
[2019-06-14] MEDS ORDERED: propofoL 200 MG/20 ML VIAL IV ONE (14:12)
--- NOTE | 2019-06-14 14:13 | Anesthesia Consultation ---
Anesthesia Consult and Med Hx Date of service: 06/14/19 - Airway Anesthetic Teeth Evaluation: Poor, Partials ROM Head & Neck: Adequate Mental/Hyoid Distance: Adequate Mallampati Class: Class II Intubation Access Assessment: Probably Good - Pulmonary Exam CTA: Yes - Cardiac Exam Cardiac Exam: RRR - Pre-Operative Health Status ASA Pre-Surgery Classification: ASA3 Proposed Anesthetic Plan: MAC - Pulmonary Hx Smoking: Yes Hx Respiratory Symptoms: No - Cardiovascular System Hx Hypertension: Yes Hx Coronary Artery Disease: Yes Hx Percutaneous Transluminal Coronary Angioplasty (PTCA): Yes (multiple; most recent BMS placed 02/2018) - Endocrine Hx Renal Disease: No Hx Insulin Dependent Diabetes: Yes Hx Thyroid Disease: No - Hematic Hx Anemia: Yes (2/2 GI bleed) - Additional Comments Anesthesia Medical History Comments: Patient is poor historian and unable to expound on medical history documented in EMR. Language line stitcher feeder used.
--- NOTE | 2019-06-14 14:13 | Anesthesia Day of Surgery ---
Anesthesia Day of Surgery - Day of Surgery Patient Examined: Yes Patient H&P Reviewed: Yes Patient is NPO: Yes
--- NOTE | 2019-06-14 14:24 | Post Operative Note ---
Pre-op diagnosis: Melena Post-op diagnosis: other (Gastric/duodenual ulcer) Findings: 1. 5mm pigment based ulcer duodenal bulb 2. 3mm gastric white based ulcer antrum, cold bx 3. Otherwise normal Procedure: EGD with cold biopsy Anesthesia: MAC Surgeon: MONTY HARDING Estimated blood loss: minimal Pathology: list (1. Gastric antrum ulcer) Specimen disposition: to lab Condition: stable Disposition: floor (Recs: 1. Ulcers low risk to rebleed. 2. Patient to d/c naprosyn; may continue ASA/plavix. 3. D/C on protonix PO QD when stable hct (may d/c today). 4. MVI daily therapy. 5. Will sign off; please call if needed.)
--- NOTE | 2019-06-14 14:38 | Operative Report ---
PROCEDURE PERFORMED: Esophagogastroduodenoscopy with cold biopsy. PREOPERATIVE DIAGNOSIS: Melena. POSTOPERATIVE DIAGNOSES: Gastric and duodenal ulcers. ENDOSCOPIST: Oleksandr Norman MD INSTRUMENT: Olympus video endoscope. MEDICATIONS: MAC anesthesia by Anesthesia Services. COMPLICATIONS: No apparent complications. ESTIMATED BLOOD LOSS: Minimal. SPECIMENS: Gastric antrum ulcer. IMPLANTS: None. ASSISTANTS: None. CONDITION AT COMPLETION: Stable. TECHNIQUE: The patient was informed of the risks and benefits of the procedure. He signed the informed consent to proceed. He was placed in the left lateral decubitus position. The above sedatives were given. His vital signs remained stable throughout the procedure. The instrument was advanced from the mouth to the second portion of the duodenum under direct visualization. At that point, the bowel was insufflated and the endoscope was slowly withdrawn. FINDINGS: 1. A 5-mm ulcer in the duodenal bulb, pigment-based, low risk to rebleed. 2. A 3-mm ulcer in the gastric antrum, white-based, low risk to rebleed; cold biopsies taken of the margin. 3. Otherwise, normal esophagus, stomach and duodenum. RECOMMENDATIONS: 1. The ulcer would be considered low risk to rebleed and the patient may be discharged when his hematocrit is stable. 2. I would discontinue the patient's Naprosyn; however, he may continue aspirin and Plavix given his significant cardiac history, on discharge. 3. The patient will need a prescription for Protonix daily therapy upon discharge. 4. Multivitamin with iron therapy. 5. We will sign off; the patient may follow up in clinic for biopsy results. JOB# [id number] KENTRELL/NTS
[2019-06-14] MEDS: MORPHINE 2 MG/1 ML INJ IV PRN ×2 (15:39→19:18)
[2019-06-14] MEDS: PANTOPRAZOLE 40 MG TAB PO SCH (15:39)
[2019-06-14] MEDS: MULTIVITAMINS,THER W-MINERALS TAB PO SCH (15:39)
--- NOTE | 2019-06-14 19:25 | Post Anesthesia Evaluation ---
- Post Anesthesia Evaluation Patient Participated: Yes Airway Patent: Yes Stable Respiratory Function: Yes Nausea/Vomiting: No Temp > 96.8F: Yes Pain Manageable: Yes Adequeate Hydration: Yes Anesthesia Complications: No Block Receding Appropriately: Not Applicable Patient on Ventilator: No
[2019-06-14] MEDS: ACETAMINOPHEN 325 MG TAB PO PRN (20:07)
[2019-06-15] MEDS: SODIUM CHLORIDE 0.45% 1000 ML 1,000 ML IV SCH ×3 (01:48→16:18)
[2019-06-15] MEDS: INSULIN LISPRO 100 UNIT/ML SUB-Q SCH ×5 (02:05→17:34)
[2019-06-15] MEDS: MULTIVITAMINS,THER W-MINERALS TAB PO SCH (09:19)
[2019-06-15] MEDS: PANTOPRAZOLE 40 MG TAB PO SCH (09:19)
[2019-06-15] MEDS: MORPHINE 2 MG/1 ML INJ IV PRN (09:20)
[2019-06-15] MEDS: cephALEXin 500 MG CAP PO SCH ×2 (14:09→22:14)
--- NOTE | 2019-06-15 14:23 | XRay Report ---
RIGHT HAND 2 VIEWS INDICATION / CLINICAL INFORMATION: Pain swelling right hand COMPARISON: 05/13/2019. FINDINGS: BONES / JOINT(S): No acute fracture or subluxation. No significant arthritis. SOFT TISSUES: Vascular calcification. ADDITIONAL FINDINGS: None. Signer Name: Adi Agosto MD Signed: 06/15/2019 2:19 PM Workstation Name: [id number]
--- NOTE | 2019-06-15 15:51 | Progress Note ---
Assessment and Plan Assessment and plan: Patient is a 58-year-old Georgian speaking man (Bilingual Interpreter service used) with a history of hypertension, diabetes mellitus type 2, colon cancer, hyperlipidemia and coronary artery disease who presents to [facility] ED with melena x3 days and abdominal pains. Patient will be admitted to the hospital for GI bleed. Patient reports history of colon cancer several years ago which he states was treated with "laser." Patient denies ever having had chemotherapy or radiation. Patient reports this therapy cured his cancer. 2 years ago patient was admitted to this hospital and found to have questionable metastatic disease to the lung and liver. Patient denies following up with any physicians on an outpatient patient basis since that admission. In ED he was found to have heme positive melanotic stools, drop in hemoglobin to 10 which is lower than when he was seen 1 month ago @ 13.5 on 05/13/19. Also, he renal function has declined slightly, BUN and Cr currently elevated at 55 and 1.1 as compared to last month which was 20/0.7. He was also tachycardic, HR in the 140s initially, but improved w/ IV fluid bolus. PCP: Twila. * CT abd/pelvis with contrast IMPRESSION: 1. Questionable mild enteritis. Please correlate with clinical symptoms and presentation. 2. Retroperitoneal and pelvic adenopathy are present and appear decreased in size/less prominent than on 2018 CT scan, in this patient with known colon cancer. 3. Several pulmonary nodules are noted, which are less prominent than on prior CT scan. Stable visualized hilar and subcarinal adenopathy. Acute GI bleed /melena: Continue Protonix drip, follow hemoglobin, Consult GI, start IV fluids Acute on chronic GI blood loss anemia: serial H/H Hyponatremia, hypo-osm: treat with volume, monitor BMP benny Diabetes mellitus uncontrolled hyperglycemia: treat with SSI and modified diet WALT, vasomotor nephropathy suspected, as BUN and Cr currently elevated at 55 and 1.1 compared to last month which was 20/0.7: treat with IVFs Hypertension, stable: IV hydralazine as needed for blood pressure control Alcohol abuse: Start CIWA protocol with IV Ativan History of colon cancer DVT prophylaxis: SCD only due to anemia 06/14 Repeat Hgb 6.4. Transfuse 2 units PRBC, repeat in am History Interval history: patient had blood in stool today Hospitalist Physical - Physical exam Narrative exam: N: Not in acute distress, sitting up in bedr,obese HEENT: Normocephalic, atraumatic, Neck: supple, No JVD Lungs: clear,, heart;S1 and S2 reg, no murmurs, rubs or gallop Abd:soft, non tender, non distended, normal bowel sounds Ext: erythema 5th finger Neuro: AAO x 3, no focal signs - Constitutional Vitals: Temp Pulse Resp BP Pulse Ox 98.1 F 106 H 18 122/73 98 06/15/19 12:23 06/15/19 12:23 06/15/19 12:23 06/15/19 12:23 06/15/19 12:23 BAIRON score - Bairon Score Age > 65: (0) No Aspirin use within the Past 7 Days: (0) No 3 or more CAD Risk Factors: (1) Yes 2 or more Angina events in past 24 hrs: (0) No Known CAD with more than 50% Stenosis: (0) No Elevated Cardiac Markers: (0) No ST Deviation Greater than 0.5mm: (0) No BAIRON Score: 1 Results - Labs CBC & Chem 7: 06/16/19 12:49 06/16/19 05:18 Labs: Laboratory Last Values WBC 5.6 K/mm3 (4.5-11.0) 06/14/19 08:07 RBC 2.55 M/mm3 (3.65-5.03) L 06/14/19 08:07 Hgb 7.6 gm/dl (11.8-15.2) L 06/14/19 08:07 Hct 22.0 % (35.5-45.6) L D 06/14/19 08:07 MCV 86 fl (84-94) 06/14/19 08:07 MCH 30 pg (28-32) 06/14/19 08:07 MCHC 34 % (32-34) 06/14/19 08:07 RDW 13.1 % (13.2-15.2) L 06/14/19 08:07 Plt Count 142 K/mm3 (140-440) 06/14/19 08:07 Lymph % (Auto) 36.0 % (13.4-35.0) H 06/14/19 08:07 [place] % (Auto) 9.7 % (0.0-7.3) H 06/14/19 08:07 Eos % (Auto) 2.1 % (0.0-4.3) 06/14/19 08:07 Baso % (Auto) 0.5 % (0.0-1.8) 06/14/19 08:07 Lymph # 2.0 K/mm3 (1.2-5.4) 06/14/19 08:07 [place] # 0.5 K/mm3 (0.0-0.8) 06/14/19 08:07 Eos # 0.1 K/mm3 (0.0-0.4) 06/14/19 08:07 Baso # 0.0 K/mm3 (0.0-0.1) 06/14/19 08:07 Seg Neutrophils % 51.7 % (40.0-70.0) 06/14/19 08:07 Seg Neutrophils # 2.9 K/mm3 (1.8-7.7) 06/14/19 08:07 Sodium 138 mmol/L (137-145) D 06/14/19 08:07 Potassium 3.7 mmol/L (3.6-5.0) D 06/14/19 08:07 Chloride 106.0 mmol/L (98-107) 06/14/19 08:07 Carbon Dioxide 20 mmol/L (22-30) L 06/14/19 08:07 Anion Gap 16 mmol/L 06/14/19 08:07 BUN 41 mg/dL (9-20) H 06/14/19 08:07 Creatinine 0.7 mg/dL (0.8-1.5) L 06/14/19 08:07 Estimated GFR > 60 ml/min 06/14/19 08:07 BUN/Creatinine Ratio 59 % 06/14/19 08:07 Glucose 165 mg/dL (75-100) H 06/14/19 08:07 POC Glucose 289 (70-105) H 06/15/19 12:35 Calcium 8.1 mg/dL (8.4-10.2) L 06/14/19 08:07 Total Bilirubin 0.40 mg/dL (0.1-1.2) 06/13/19 21:30 AST 12 units/L (5-40) 03/12/20 21:30 ALT 17 units/L (7-56) 06/13/19 21:30 Alkaline Phosphatase 84 units/L (35-129) 06/13/19 21:30 Total Protein 7.0 g/dL (6.3-8.2) 06/13/19 21:30 Albumin 4.3 g/dL (3.9-5) 06/13/19 21:30 Albumin/Globulin Ratio 1.6 % 06/13/19 21:30 Urine Color Colorless (Yellow) 06/13/19 Unknown Urine Turbidity Clear (Clear) 06/13/19 Unknown Urine pH 5.0 (5.0-7.0) 06/13/19 Unknown Ur Specific [place] 1.025 (1.003-1.030) 06/13/19 Unknown Urine Protein <15 mg/dl mg/dL (Negative) 06/13/19 Unknown Urine Glucose (UA) >=500 mg/dL (Negative) 06/13/19 Unknown Urine Ketones 20 mg/dL (Negative) 06/13/19 Unknown Urine Blood Neg (Negative) 06/13/19 Unknown Urine Nitrite Neg (Negative) 06/13/19 Unknown Urine Bilirubin Neg (Negative) 06/13/19 Unknown Urine Urobilinogen < 2.0 mg/dL (<2.0) 06/13/19 Unknown Ur Leukocyte Esterase Neg (Negative) 06/13/19 Unknown Urine WBC (Auto) < 1.0 /HPF (0.0-6.0) 06/13/19 Unknown Urine RBC (Auto) 2.0 /HPF (0.0-6.0) 06/13/19 Unknown U Epithel Cells (Auto) < 1.0 /HPF (0-13.0) 06/13/19 Unknown Urine Mucus Few /HPF 06/13/19 Unknown Blood Type O POSITIVE 06/14/19 00:12 Antibody Screen Negative 06/14/19 00:12 Bragg/IV: Voiding Method Toilet IV Catheter Type [Left Hand] INT / Saline Lock Active Medications - Current Medications Current Medications: Generic Name Dose Route Start Last Admin Trade Name Freq PRN Reason Stop Dose Admin Acetaminophen 650 mg 06/14/19 05:01 06/14/19 20:07 Tylenol PO 650 mg Q4H PRN Administration Pain MILD(1-3)/Fever >100.5/HICKMAN Cephalexin 500 mg 06/15/19 14:00 06/15/19 14:09 Keflex PO 500 mg Q6H GENNA Administration Dextrose 50 ml 06/14/19 05:03 D50w (25gm) Syringe IV Q30MIN PRN Hypoglycemia Protocol Hydralazine HCl 5 mg 06/14/19 05:09 Apresoline IV Q6H PRN Hypertension Sodium Chloride 1,000 mls @ 150 mls/hr 06/14/19 05:12 06/15/19 09:21 Nacl 0.45% 1000 Ml IV 150 mls/hr DIRECT GENNA Administration Insulin Human Lispro 0 unit 06/14/19 06:00 06/15/19 12:44 Humalog SUB-Q 6 unit Q6HR GENNA Administration Protocol Lorazepam 2 mg 06/14/19 06:04 Ativan IV Q1HR PRN CIWA-Ar 8-15 Lorazepam 4 mg 06/14/19 06:04 Ativan IV Q1HR PRN CIWA-Ar 16-25 Miscellaneous Medication 50 mg 06/15/19 16:00 Metoprolol PO BID GENNA Miscellaneous Medication 30 mg 06/15/19 16:00 Isosorbide Mononitrate PO QDAY GENNA Morphine Sulfate 2 mg 06/14/19 05:01 06/14/19 15:39 Morphine IV 2 mg Q4H PRN Administration Pain, Moderate (4-6) Multivitamins/Minerals 1 each 06/14/19 15:00 06/15/19 09:19 Theragran-M Tab PO 1 each QDAY GENNA Administration Ondansetron HCl 4 mg 06/14/19 05:01 Zofran IV Q8H PRN Nausea And Vomiting Pantoprazole Sodium 40 mg 06/14/19 15:00 06/15/19 09:19 Protonix PO 40 mg QDAY GENNA Administration Sodium Chloride 10 ml 06/14/19 10:00 06/15/19 09:19 Sodium Chloride Flush Syringe 10 Ml IV 10 ml BID GENNA Administration Sodium Chloride 10 ml 06/14/19 05:01 Sodium Chloride Flush Syringe 10 Ml IV PRN PRN LINE FLUSH
[2019-06-15] MEDS: METOPROLOL TARTRATE 50 MG TAB PO SCH ×2 (16:12→22:14)
[2019-06-15] MEDS: ACETAMINOPHEN 325 MG TAB PO PRN ×2 (16:17→22:13)
[2019-06-15] MEDS: CLOPIDOGREL 75 MG TAB PO SCH (17:17)
[2019-06-15 18:45] LABS: Hemoglobin 6.4 gm/dl (11.8-15.2)
[2019-06-15 18:49] LABS: Hematocrit 18.8 % (35.5-45.6)
[2019-06-15] MEDS ORDERED: SODIUM CHLORIDE 0.9% 500 ML 500 ML IV ONE ×2 (18:54→21:30)
[2019-06-16] MEDS: INSULIN LISPRO 100 UNIT/ML SUB-Q SCH ×3 (00:53→12:48)
[2019-06-16] MEDS: cephALEXin 500 MG CAP PO SCH ×2 (03:11→11:01)
[2019-06-16] MEDS: MORPHINE 2 MG/1 ML INJ IV PRN (03:11)
[2019-06-16 05:59] LABS: Hematocrit 25.1 % (35.5-45.6); Hemoglobin 8.5 gm/dl (11.8-15.2); Mean Corpuscular HGB Conc 34 % (32-34); Mean Corpuscular Volume 87 fl (84-94); Platelet Count 138 K/mm3 (140-440); Red Blood Count 2.89 M/mm3 (3.65-5.03); Red Cell Distribution Width 14.7 % (13.2-15.2)
[2019-06-16 06:14] LABS: BUN/Creatinine Ratio 18; Blood Urea Nitrogen 11 mg/dL (9-20); Calcium 8.2 mg/dL (8.4-10.2); Hemolysis Index 4
[2019-06-16] MEDS: ACETAMINOPHEN 325 MG TAB PO PRN (06:38)
[2019-06-16] MEDS: SODIUM CHLORIDE 0.45% 1000 ML 1,000 ML IV SCH (06:39)
[2019-06-16] MEDS ORDERED: ASPIRIN EC 81 MG TAB PO SCH (10:00)
--- NOTE | 2019-06-16 10:17 | Discharge Summary ---
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 Hospitalization Condition: Fair Disposition: DC-01 TO HOME OR SELFCARE Core Measure Documentation - Palliative Care Palliative Care/ Comfort Measures: Not Applicable - Core Measures Any of the following diagnoses?: none Exam - Constitutional Vitals: Temp Pulse Resp BP Pulse Ox 97.9 F 94 H 18 115/73 98 06/16/19 08:25 06/16/19 08:25 06/16/19 08:25 06/16/19 08:25 06/16/19 08:25 Plan Activity: no restrictions Diet: low fat, low cholesterol, low salt Special Instructions: other (Start taking Aspirin and Plavix back on Monday06/20/14.) Plan of Treatment: 1.Follow up with PCP or [facility] in 1 week. 2.Follow up with Dr. Norman , GI in 1 week Follow up with: PRIMARY CARE,MD [Primary Care Provider] - 3-5 Days Prescriptions: Isosorbide Mononitrate 30 mg PO QDAY #30 cephALEXin [Keflex] 500 mg PO Q6H 7 Days #28 capsule Metoprolol 50 mg PO BID #60 Insulin NPH/Regular [Novolin 70/30] 15 unit SQ BIDDIAB #1 vial Pantoprazole [Protonix TAB] 40 mg PO QDAY #30 tablet traMADoL [Ultram 50 MG tab] 50 mg PO Q6HR PRN #12 tablet PRN Reason: Pain
[2019-06-16] MEDS: MULTIVITAMINS,THER W-MINERALS TAB PO SCH (11:01)
[2019-06-16] MEDS: METOPROLOL TARTRATE 50 MG TAB PO SCH (11:01)
[2019-06-16] MEDS: PANTOPRAZOLE 40 MG TAB PO SCH (11:02)
[2019-06-16] MEDS: CLOPIDOGREL 75 MG TAB PO SCH (11:02)
--- NOTE | 2019-06-16 11:40 | Event Note ---
Date: 06/16/19 Called by Nurse that patient just had large volume back stools. Will get stat H/H, re-consult GI. Hold Aspirin and Plavix. cancel discharge.
[2019-06-16 13:57] LABS: Hemoglobin 8.7 gm/dl (11.8-15.2)
[2019-06-16 20:29] VITALS: BP 110/78
--- NOTE | 2019-06-16 22:13 | Progress Note ---
Hospitalist Physical - Constitutional Vitals: Temp Pulse Resp BP Pulse Ox 98 F 68 20 110/78 98 06/16/19 20:28 06/16/19 20:28 06/16/19 20:28 06/16/19 20:28 06/16/19 16:56 HALINA score - Halina Score Age > 65: (0) No Aspirin use within the Past 7 Days: (0) No 3 or more CAD Risk Factors: (1) Yes 2 or more Angina events in past 24 hrs: (0) No Known CAD with more than 50% Stenosis: (0) No Elevated Cardiac Markers: (0) No ST Deviation Greater than 0.5mm: (0) No HALINA Score: 1 Results - Labs CBC & Chem 7: 06/16/19 12:49 06/16/19 05:18 Labs: Laboratory Last Values WBC 5.1 K/mm3 (4.5-11.0) 06/16/19 05:18 RBC 2.89 M/mm3 (3.65-5.03) L 06/16/19 05:18 Hgb 8.7 gm/dl (11.8-15.2) L 06/16/19 12:49 Hct 26.0 % (35.5-45.6) L 06/16/19 12:49 MCV 87 fl (84-94) 06/16/19 05:18 MCH 29 pg (28-32) 06/16/19 05:18 MCHC 34 % (32-34) 06/16/19 05:18 RDW 14.7 % (13.2-15.2) 06/16/19 05:18 Plt Count 138 K/mm3 (140-440) L 06/16/19 05:18 Lymph % (Auto) 36.0 % (13.4-35.0) H 06/14/19 08:07 Norman % (Auto) 9.7 % (0.0-7.3) H 06/14/19 08:07 Eos % (Auto) 2.1 % (0.0-4.3) 06/14/19 08:07 Baso % (Auto) 0.5 % (0.0-1.8) 06/14/19 08:07 Lymph # 2.0 K/mm3 (1.2-5.4) 06/14/19 08:07 Norman # 0.5 K/mm3 (0.0-0.8) 06/14/19 08:07 Eos # 0.1 K/mm3 (0.0-0.4) 06/14/19 08:07 Baso # 0.0 K/mm3 (0.0-0.1) 06/14/19 08:07 Seg Neutrophils % 51.7 % (40.0-70.0) 06/14/19 08:07 Seg Neutrophils # 2.9 K/mm3 (1.8-7.7) 06/14/19 08:07 Sodium 138 mmol/L (137-145) 06/16/19 05:18 Potassium 3.8 mmol/L (3.6-5.0) 06/16/19 05:18 Chloride 105.3 mmol/L (98-107) 06/16/19 05:18 Carbon Dioxide 21 mmol/L (22-30) L 06/16/19 05:18 Anion Gap 16 mmol/L 06/16/19 05:18 BUN 11 mg/dL (9-20) 06/16/19 05:18 Creatinine 0.6 mg/dL (0.8-1.5) L 06/16/19 05:18 Estimated GFR > 60 ml/min 06/16/19 05:18 BUN/Creatinine Ratio 18 % 06/16/19 05:18 Glucose 176 mg/dL (75-100) H 06/16/19 05:18 POC Glucose 298 (70-105) H 06/16/19 16:27 Uric Acid 3.6 mg/dL (3.5-7.6) 06/15/19 14:21 Calcium 8.2 mg/dL (8.4-10.2) L 06/16/19 05:18 Total Bilirubin 0.40 mg/dL (0.1-1.2) 06/13/19 21:30 AST 12 units/L (5-40) 06/13/19 21:30 ALT 17 units/L (7-56) 06/13/19 21:30 Alkaline Phosphatase 84 units/L (35-129) 06/13/19 21:30 Total Protein 7.0 g/dL (6.3-8.2) 06/13/19 21:30 Albumin 4.3 g/dL (3.9-5) 06/13/19 21:30 Albumin/Globulin Ratio 1.6 % 06/13/19 21:30 Urine Color Colorless (Yellow) 06/13/19 Unknown Urine Turbidity Clear (Clear) 06/13/19 Unknown Urine pH 5.0 (5.0-7.0) 06/13/19 Unknown Ur Specific [place] 1.025 (1.003-1.030) 06/13/19 Unknown Urine Protein <15 mg/dl mg/dL (Negative) 06/13/19 Unknown Urine Glucose (UA) >=500 mg/dL (Negative) 06/13/19 Unknown Urine Ketones 20 mg/dL (Negative) 06/13/19 Unknown Urine Blood Neg (Negative) 06/13/19 Unknown Urine Nitrite Neg (Negative) 06/13/19 Unknown Urine Bilirubin Neg (Negative) 06/13/19 Unknown Urine Urobilinogen < 2.0 mg/dL (<2.0) 06/13/19 Unknown Ur Leukocyte Esterase Neg (Negative) 06/13/19 Unknown Urine WBC (Auto) < 1.0 /HPF (0.0-6.0) 06/13/19 Unknown Urine RBC (Auto) 2.0 /HPF (0.0-6.0) 06/13/19 Unknown U Epithel Cells (Auto) < 1.0 /HPF (0-13.0) 06/13/19 Unknown Urine Mucus Few /HPF 06/13/19 Unknown Blood Type O POSITIVE 06/14/19 00:12 Antibody Screen Negative 06/14/19 00:12 Crossmatch See Detail 06/14/19 00:12 Bragg/IV: Voiding Method Toilet IV Catheter Type [Left Forearm INT / Saline Lock ] IV Catheter Type [Left Hand] INT / Saline Lock Active Medications - Current Medications Current Medications: Generic Name Dose Route Start Last Admin Trade Name Freq PRN Reason Stop Dose Admin Acetaminophen 650 mg 06/14/19 05:01 06/16/19 06:38 Tylenol PO 650 mg Q4H PRN Administration Pain MILD(1-3)/Fever >100.5/HICKMAN Cephalexin 500 mg 06/15/19 14:00 06/16/19 11:01 Keflex PO 500 mg Q6H GENNA Administration Dextrose 50 ml 06/14/19 05:03 D50w (25gm) Syringe IV Q30MIN PRN Hypoglycemia Protocol Hydralazine HCl 5 mg 06/14/19 05:09 Apresoline IV Q6H PRN Hypertension Sodium Chloride 1,000 mls @ 150 mls/hr 06/14/19 05:12 06/16/19 06:39 Nacl 0.45% 1000 Ml IV 150 mls/hr DIRECT GENNA Administration Insulin Human Lispro 0 unit 06/14/19 06:00 06/16/19 12:48 Humalog SUB-Q 6 unit Q6HR GENNA Administration Protocol Isosorbide Mononitrate 30 mg 06/15/19 16:00 06/16/19 11:01 Imdur PO 30 mg QDAY GENNA Administration Lorazepam 2 mg 06/14/19 06:04 Ativan IV Q1HR PRN CIWA-Ar 8-15 Lorazepam 4 mg 06/14/19 06:04 Ativan IV Q1HR PRN CIWA-Ar 16-25 Metoprolol Tartrate 50 mg 06/15/19 16:00 06/16/19 11:01 Metoprolol PO 50 mg BID GENNA Administration Morphine Sulfate 2 mg 06/14/19 05:01 06/14/19 15:39 Morphine IV 2 mg Q4H PRN Administration Pain, Moderate (4-6) Multivitamins/Minerals 1 each 06/14/19 15:00 06/16/19 11:01 Theragran-M Tab PO 1 each QDAY GENNA Administration Ondansetron HCl 4 mg 06/14/19 05:01 Zofran IV Q8H PRN Nausea And Vomiting Pantoprazole Sodium 40 mg 06/14/19 15:00 06/16/19 11:02 Protonix PO 40 mg QDAY GENNA Administration Sodium Chloride 10 ml 06/14/19 10:00 06/16/19 11:02 Sodium Chloride Flush Syringe 10 Ml IV 10 ml BID GENNA Administration Sodium Chloride 10 ml 06/14/19 05:01 Sodium Chloride Flush Syringe 10 Ml IV PRN PRN LINE FLUSH
== END 2019-06-16 19:30 | disposition home or self-care (01) | DRG 377 ==
LOC: ED 21:08 → 4A 06-14 04:47
PROVIDERS: ADMIT Internal Medicine; ATTEND Internal Medicine
PROC: 0DB78ZX Excision of Stomach, Pylorus, Via Natural or Artificial Opening Endoscopic, Diagnostic (ICD-10-PCS; 2019-06-14)
PROC: 30233N1 Transfusion of Nonautologous Red Blood Cells into Peripheral Vein, Percutaneous Approach (ICD-10-PCS; principal; 2019-06-15)
DX: K26.4 Chronic or unspecified duodenal ulcer with hemorrhage (principal); N17.0 Acute kidney failure with tubular necrosis; D62 Acute posthemorrhagic anemia; E87.1 Hypo-osmolality and hyponatremia; K25.4 Chronic or unspecified gastric ulcer with hemorrhage; E11.65 Type 2 diabetes mellitus with hyperglycemia; E78.5 Hyperlipidemia, unspecified; F10.10 Alcohol abuse, uncomplicated; I25.10 Atherosclerotic heart disease of native coronary artery without angina pectoris; I10 Essential (primary) hypertension; Z85.038 Personal history of other malignant neoplasm of large intestine; Z79.4 Long term (current) use of insulin; Z79.899 Other long term (current) drug therapy
CPT/HCPCS: 36415; 74177; 80048; 80053; 81001; 82962; 84550; 85014; 85018; 85025; 85027; 86850; 86900; 86901; 86920; 88305; 88342; 96361; 96374; G0378; C9113; J1815; J2270; J2704; J7030; J7040; P9016; Q9967